=== PATIENT | male | born 1985 | race Two or more races ===

== ENCOUNTER 2020-10-20 12:10 | Emergency (ER) | payer MEDICAID ==
[~2020-10-20] VITALS: Ht 170.2 cm; Wt 81.6 kg
[2020-10-20 12:36] VITALS: BP 141/77
== END 2020-10-20 13:21 | disposition home or self-care (01) ==
LOC: ER 12:10
DX: E11.9 Type 2 diabetes mellitus without complications (principal); Z76.0 Encounter for issue of repeat prescription

== ENCOUNTER 2020-10-22 16:36 | Emergency (ER) | payer MEDICAID ==
[~2020-10-22] VITALS: Ht 170.2 cm; Wt 87.5 kg
[2020-10-22] MEDS ORDERED: SODIUM CHLORIDE 0.9% 1,000 ML IVB ONE (17:45)
[2020-10-22 18:37] LABS: Basophils # (auto) 0.1 10 ^3/uL (0-0.2); Eosinophils # (auto) 0.2 10 ^3/uL (0-0.8); Eosinophils % (auto) 2.5 % (0.0-7.0); Hematocrit 42.2 % (41.0-53.0); Hemoglobin 14.3 g/dL (13.5-17.5); Lymphocytes # (auto) 1.6 10 ^3/uL (0.4-5.4); Mean Corpuscular Hgb Conc. 33.9 g/dL (32.0-36.0); Mean Corpuscular Volume 94.4 fL (80.0-100.0); Monocytes # (auto) 0.4 10 ^3/uL (0-1.3); Monocytes % (auto) 6.4 % (0.0-12.0); Neutrophils # (auto) 4.3 10 ^3/uL (1.6-8.6); Neutrophils % (auto) 66.1 % (37.0-80.0); Nucleated Red Blood Cells % 0.3 %; Platelet Count (auto) 283 10^3/uL (140-450); Red Blood Cells 4.47 10^6/uL (4.5-5.90); White Blood Cell 6.6 10^3/uL (4.4-10.8)
[2020-10-22 18:50] LABS: Albumin 3.8 g/dL (3.4-5.0); Calcium 9.2 mg/dL (8.5-10.1); Magnesium 2.2 mg/dL (1.6-2.6); Potassium 4.8 mmol/L (3.5-5.1)
[2020-10-22 18:54] LABS: Urine WBC None Seen /hpf (0 - 3)
[2020-10-22 18:55] LABS: BUN/Creatinine Ratio 28.8; Bilirubin, Total 0.3 mg/dL (0.2-1.0); Total Protein 7.7 g/dL (6.4-8.2)
[2020-10-22 19:17] LABS: Urine Bacteria NONE SEEN /hpf (None Seen); Urine Blood Negative /uL (Negative); Urine Specific Gravity 1.018 (1.001-1.035)
[2020-10-23] MEDS ORDERED: DEXTROSE (50%) 50ML SYRG IV ONE (05:45)
[2020-10-23 09:15] VITALS: BP 119/64
== END 2020-10-23 11:00 | disposition home or self-care (01) ==
LOC: ER 16:36
DX: G40.909 Epilepsy, unspecified, not intractable, without status epilepticus (principal); E11.649 Type 2 diabetes mellitus with hypoglycemia without coma; R42 Dizziness and giddiness
CPT/HCPCS: 36415; 70450; 71045; 80053; 81001; 82962; 83735; 85025; 87426; 96360; 99285; J7030